=== PATIENT | male | born 1940 | race Caucasian/White ===

== ENCOUNTER → 2016-03-05 | Outpatient (REF) | payer MEDICARE, OTHER ==
[~2016-03-05] MED LIST: /ADVA50050 IN; /ADVA50050 INH; /IPRAINH IN; /THIA10TA OR; /WARF25TA OR; /WARF5TA OR; ACET65TA OR; ADV500INH INH; ALBU17IN INH; ALBU2TAB INH; ALBUTEROL INH; ALEV220T26 PO; AMLO10TA2 PO; AUGM500T34 PO; AZIT600T OR; BACT800T5 PO; BENI20TA11 OR; BENI20TA11 PO; CATA0.2T PO; CEFD1CAP8 PO; COLA100C PO; COMBAER6 INH; DUONSOL IN; ELIQ5TAB PO; FAMO20TA PO; FINA5TAB2 PO; FLAG500T PO; FLEET ENEMA PR; FLOM5CAP PO; FOLI1TAB OR; GABA300C3 PO; HYDR12.55 PO; KEFL500C7 PO; LISI-538 PO; LISI20TA PO; LOPR100T PO; LYRI150C PO; META28.35 PO; METO12TA PO; METO25TAB PO; MILKSUS OR; MIRALEX OR; MVI PO; NORV5TAB OR; PERC5TAB8 OR; PERC7.5T8 OR; PERCOCET PO; PRED10TA PO; PRED20TA OR; SENN8.6T5 OR; SIME180C PO; TRAM50TA2 PO; TYLE325T5 PO
[2016-03-05 13:09] LABS: ALBUMIN 3.8 GM/DL (3.2-5.2); ALBUMIN/GLOBULIN RATIO 1.12 (1.00-1.93); ALKALINE PHOSPHATASE 105 U/L (45-117); ALT/SGPT 60 U/L (12-78); ANION GAP 7 MEQ/L (8-16); AST/SGOT 65 U/L (15-37); BASO % 0.6 % (0.0-1.0); BILIRUBIN,TOTAL 0.6 MG/DL (0.2-1.0); BLOOD UREA NITROGEN 15 MG/DL (7-18); CALCIUM LEVEL 8.8 MG/DL (8.8-10.2); CARBON DIOXIDE LEVEL 31 MEQ/L (21-32); CHLORIDE LEVEL 105 MEQ/L (98-107); CREATININE FOR GFR 1.21 MG/DL (0.70-1.30); EOS # 0.3 K/mm3 (0.0-0.50); EOS % 3.4 % (0.0-3.0); GLOMERULAR FILTRATION RATE > 60.0 (>42); GLUCOSE, FASTING 92 MG/DL (83-110); LARGE UNSTAINED CELL # 0.2 K/mm3 (0.0-0.4); LYMPH # 2.4 K/mm3 (1.5-4.5); MEAN CORPUSCULAR HEMOGLOBIN 29.2 pg (27.0-33.0); MEAN CORPUSCULAR HGB CONC 32.2 g/dl (32.0-36.5); MEAN CORPUSCULAR VOLUME 90.6 fl (80.0-96.0); MONO # 0.6 K/mm3 (0.0-0.8); MONO % 7.3 % (0.0-5.0); NEUTROPHILS # 4.4 K/mm3 (1.8-7.7); NEUTROPHILS % 55.7 % (36.0-66.0); PLATELET COUNT, AUTOMATED 218 k/mm3 (150-450); POTASSIUM SERUM 4.9 MEQ/L (3.5-5.1); RED CELL DISTRIBUTION WIDTH 13.1 % (11.5-14.5); SODIUM LEVEL 143 MEQ/L (136-145); TOTAL PROTEIN 7.2 GM/DL (6.4-8.2); WHITE BLOOD COUNT 7.8 K/mm3 (4.0-10.0)
== END ==
LOC: M LABDRWAD 12:17
PROVIDERS: ATTEND Family Medicine
DX: R73.01 Impaired fasting glucose (principal); I10 Essential (primary) hypertension

== ENCOUNTER → 2016-03-13 | Day surgery (SDC) | payer MEDICARE, OTHER ==
[~2016-03-13] VITALS: Ht 175.3 cm; Wt 81.6 kg
[~2016-03-13] MED LIST changes: +ACETAMINOPHEN 325 MG TAB PO PRN; +ACETYLCHOLINE OPHTH SOLN 1% 2ML As Ordered ONE; +ACETYLCHOLINE OPHTH SOLN 1% 2ML XX ONE; +AcetaZOLAMIDE 500 MG ER CAP PO ONE; +BALANCED SALT IRRIGATION SOL 500ML GLASS BOTTLE (FOR OR EYE COMPOUND) IR ONE; +BSS with VANC/TOB/EPI for EYE CASES IR ONE; +CEFUROXIME 1MG/0.1ML INTRACAMERAL INJ As Ordered ONE; +CEFUROXIME 1MG/0.1ML INTRACAMERAL INJ ICAM ONE; +CYCLOPENTOLATE 2% OPHTH SOLN As Ordered ONE; +CYCLOPENTOLATE 2% OPHTH SOLN OD ONE; +HEALON DUET (HEALON 10MG/ML 0.55ML & HEALON ENDOCOAT 30MG/ML 0.85ML) As Ordered ONE; +HEALON DUET (HEALON 10MG/ML 0.55ML & HEALON ENDOCOAT 30MG/ML 0.85ML) XX ONE; +KETOROLAC 0.5% OPHTH SOLN OD ONE; +LIDOCAINE 1% SDV 5 ML VIAL As Ordered ONE; +LIDOCAINE 1% SDV 5 ML VIAL XX ONE; +LIDOCAINE 4% INJ 5 ML AMP OU ONE; +METOPROLOL 5 MG/5 ML VIAL As Ordered ONE; +MIDAZOLAM INJ 2 MG/2 ML VIAL (J2250) As Ordered ONE; +OFLOXACIN 0.3 % (OCUFLOX) OPTH SOL 5ML As Ordered ONE; +OFLOXACIN 0.3 % (OCUFLOX) OPTH SOL 5ML OD ONE; +PHENYLEPHRINE 2.5% OPHTH SOL 2ML As Ordered ONE; +PHENYLEPHRINE 2.5% OPHTH SOL 2ML OD ONE; +POVIDONE-IODINE 5% OPHTH PREP SOL 30ML As Ordered ONE; +PROPARACAINE 0.5% OPHTH SOL 15ML OD PRN; +TOBRADEX OPHTH SUSP 2.5 ML OD ONE; +TRIMETHOBENZAMIDE 300 MG CAP PO PRN; +TROPICAMIDE 1% OPHTH SOLN 2 ML As Ordered ONE; +TROPICAMIDE 1% OPHTH SOLN 2 ML OD ONE; +fentaNYL 100 MCG/2 ML INJECTION (J3010) As Ordered ONE
[2016-03-13 09:25] VITALS: BP 136/78
--- NOTE | 2016-03-13 11:35 | RO ---
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 PROCEDURE: Femtosecond cataract extraction with posterior chamber intraocular lens implantation and use of pupil expansion device. Lens used PCB00 20.0 diopter. SURGEON: Lyndsay Umaña MD VP DELIVERY: ANESTHESIA: Topical with sedation. DESCRIPTION OF PROCEDURE: The patient was prepped and draped in the usual fashion. A lid speculum was placed between the lids. The eye was fixated. A stab incision was made to the anterior chamber, and 1% nonpreserved Lidocaine was instilled. Then, viscoelastic was instilled. The eye was refixated. A 2.75 mm keratome was used to make a clear corneal temporal limbal incision. The Malyugin ring was placed into bowling alley floors installer and injected into the eye. First the distal scroll engaged the iris then the superior and inferior scrolls engaged iris. The proximal scroll was placed with manipulation hook. Capsulorrhexis was begun with a 30-gauge bent needle and then carried out in a circular fashion with capsulorrhexis forceps. The lens was hydrodissected, and then the nucleus was grooved into two meridians. The nucleus was then cracked into four quadrants. Each quadrant was removed with the phacoemulsification unit. Any remaining cortex was removed with the I and A. Capsular bag was refilled with viscoelastic. A posterior chamber intraocular lens was placed into the capsular bag. The Malyugin ring was disinserted from the iris and the four scrolls and extracted with the manipulation hook. Any remaining viscoelastic was removed with the I and A unit. The wound was hydrated, and Miochol was instilled. The patient tolerated the procedure well and went to recovery room in stable condition.
== END | disposition home or self-care (01) ==
LOC: M SDC 06:47
PROVIDERS: ATTEND Ophthalmology
DX: H25.11 Age-related nuclear cataract, right eye (principal); I10 Essential (primary) hypertension; J44.9 Chronic obstructive pulmonary disease, unspecified; K21.9 Gastro-esophageal reflux disease without esophagitis; Z79.899 Other long term (current) drug therapy; I48.91 Unspecified atrial fibrillation; Z79.02 Long term (current) use of antithrombotics/antiplatelets; Z87.891 Personal history of nicotine dependence
CPT/HCPCS: 66984; J2250; J3010; V2632

== ENCOUNTER → 2016-06-21 | Outpatient (REF) | payer MEDICARE, OTHER ==
[~2016-06-21] MED LIST changes: -ACETAMINOPHEN 325 MG TAB PO PRN; -ACETYLCHOLINE OPHTH SOLN 1% 2ML As Ordered ONE; -ACETYLCHOLINE OPHTH SOLN 1% 2ML XX ONE; -AcetaZOLAMIDE 500 MG ER CAP PO ONE; -BALANCED SALT IRRIGATION SOL 500ML GLASS BOTTLE (FOR OR EYE COMPOUND) IR ONE; -BSS with VANC/TOB/EPI for EYE CASES IR ONE; -CEFUROXIME 1MG/0.1ML INTRACAMERAL INJ As Ordered ONE; -CEFUROXIME 1MG/0.1ML INTRACAMERAL INJ ICAM ONE; -COLA100C PO; +COLA100C3 PO; -CYCLOPENTOLATE 2% OPHTH SOLN As Ordered ONE; -CYCLOPENTOLATE 2% OPHTH SOLN OD ONE; +GABA-282 PO; -GABA300C3 PO; -HEALON DUET (HEALON 10MG/ML 0.55ML & HEALON ENDOCOAT 30MG/ML 0.85ML) As Ordered ONE; -HEALON DUET (HEALON 10MG/ML 0.55ML & HEALON ENDOCOAT 30MG/ML 0.85ML) XX ONE; -KETOROLAC 0.5% OPHTH SOLN OD ONE; -LIDOCAINE 1% SDV 5 ML VIAL As Ordered ONE; -LIDOCAINE 1% SDV 5 ML VIAL XX ONE; -LIDOCAINE 4% INJ 5 ML AMP OU ONE; -METOPROLOL 5 MG/5 ML VIAL As Ordered ONE; -MIDAZOLAM INJ 2 MG/2 ML VIAL (J2250) As Ordered ONE; -OFLOXACIN 0.3 % (OCUFLOX) OPTH SOL 5ML As Ordered ONE; -OFLOXACIN 0.3 % (OCUFLOX) OPTH SOL 5ML OD ONE; -PHENYLEPHRINE 2.5% OPHTH SOL 2ML As Ordered ONE; -PHENYLEPHRINE 2.5% OPHTH SOL 2ML OD ONE; -POVIDONE-IODINE 5% OPHTH PREP SOL 30ML As Ordered ONE; -PROPARACAINE 0.5% OPHTH SOL 15ML OD PRN; -TOBRADEX OPHTH SUSP 2.5 ML OD ONE; -TRIMETHOBENZAMIDE 300 MG CAP PO PRN; -TROPICAMIDE 1% OPHTH SOLN 2 ML As Ordered ONE; -TROPICAMIDE 1% OPHTH SOLN 2 ML OD ONE; -fentaNYL 100 MCG/2 ML INJECTION (J3010) As Ordered ONE
[2016-06-21 12:27] LABS: BASO # 0.1 K/mm3 (0.0-0.2); BASO % 0.7 % (0.0-1.0); EOS # 0.2 K/mm3 (0.0-0.50); EOS % 2.5 % (0.0-3.0); LARGE UNSTAINED CELL # 0.1 K/mm3 (0.0-0.4); LARGE UNSTAINED CELL % 1.6 % (0.0-4.0); LYMPH # 2.3 K/mm3 (1.5-4.5); LYMPH % 26.5 % (24.0-44.0); MEAN CORPUSCULAR HEMOGLOBIN 30.4 pg (27.0-33.0); MEAN CORPUSCULAR HGB CONC 32.7 g/dl (32.0-36.5); MEAN CORPUSCULAR VOLUME 93.1 fl (80.0-96.0); MONO # 0.7 K/mm3 (0.0-0.8); MONO % 8.5 % (0.0-5.0); NEUTROPHILS # 4.9 K/mm3 (1.8-7.7); NEUTROPHILS % 60.2 % (36.0-66.0); PLATELET COUNT, AUTOMATED 229 k/mm3 (150-450); RED CELL DISTRIBUTION WIDTH 13.1 % (11.5-14.5); WHITE BLOOD COUNT 8.1 K/mm3 (4.0-10.0)
[2016-06-21 12:49] LABS: ALBUMIN 3.4 GM/DL (3.2-5.2); ALBUMIN/GLOBULIN RATIO 0.92 (1.00-1.93); CALCIUM LEVEL 8.4 MG/DL (8.8-10.2); CREATININE FOR GFR 1.35 MG/DL (0.70-1.30); FREE T4 1.24 NG/DL (0.76-1.46); GLOMERULAR FILTRATION RATE 54.7 (>42); POTASSIUM SERUM 4.3 MEQ/L (3.5-5.1); TOTAL PROTEIN 7.1 GM/DL (6.4-8.2)
== END ==
LOC: M LABDRWAD 12:10
PROVIDERS: ATTEND Physician Assistant
DX: I48.0 Paroxysmal atrial fibrillation (principal); R73.01 Impaired fasting glucose; I10 Essential (primary) hypertension

== ENCOUNTER → 2016-10-16 | Outpatient (REF) | payer MEDICARE, OTHER ==
[~2016-10-16] MED LIST changes: -COLA100C3 PO; +COLA100C5 PO; +KEFL500C17 PO; -KEFL500C7 PO; -METO12TA PO; +METO1TAB87 PO
[2016-10-16 16:15] LABS: BASO % 0.6 % (0.0-1.0); EOS # 0.3 K/mm3 (0.0-0.50); EOS % 3.6 % (0.0-3.0); LARGE UNSTAINED CELL # 0.2 K/mm3 (0.0-0.4); LARGE UNSTAINED CELL % 2.2 % (0.0-4.0); LYMPH # 2.5 K/mm3 (1.5-4.5); LYMPH % 26.7 % (24.0-44.0); MEAN CORPUSCULAR HEMOGLOBIN 30.1 pg (27.0-33.0); MEAN CORPUSCULAR HGB CONC 32.1 g/dl (32.0-36.5); MEAN CORPUSCULAR VOLUME 93.7 fl (80.0-96.0); MONO # 0.7 K/mm3 (0.0-0.8); MONO % 8.1 % (0.0-5.0); NEUTROPHILS % 58.9 % (36.0-66.0); PLATELET COUNT, AUTOMATED 203 k/mm3 (150-450); RED CELL DISTRIBUTION WIDTH 13.4 % (11.5-14.5); WHITE BLOOD COUNT 8.5 K/mm3 (4.0-10.0)
[2016-10-16 16:18] LABS: ALBUMIN 3.4 GM/DL (3.2-5.2); BILIRUBIN,TOTAL 0.6 MG/DL (0.2-1.0); CALCIUM LEVEL 8.4 MG/DL (8.8-10.2); CREATININE FOR GFR 1.33 MG/DL (0.70-1.30); GLOMERULAR FILTRATION RATE 55.5 (>42); POTASSIUM SERUM 3.7 MEQ/L (3.5-5.1); TOTAL PROTEIN 6.8 GM/DL (6.4-8.2)
== END ==
LOC: M LAB REF 15:38
PROVIDERS: ATTEND Family Medicine
DX: I10 Essential (primary) hypertension (principal); R73.01 Impaired fasting glucose

== ENCOUNTER → 2017-01-31 | Outpatient (REF) | payer OTHER, MEDICARE ==
[2017-01-31 12:57] LABS: CALCIUM LEVEL 8.7 MG/DL (8.8-10.2); CREATININE FOR GFR 1.32 MG/DL (0.70-1.30); POTASSIUM SERUM 3.7 MEQ/L (3.5-5.1)
== END ==
LOC: M LABDRWAD 12:16
PROVIDERS: ATTEND Physician Assistant
DX: Z00.00 Encounter for general adult medical examination without abnormal findings (principal); R73.01 Impaired fasting glucose

== ENCOUNTER → 2017-06-30 | Outpatient (REF) | payer MEDICARE, OTHER ==
[2017-06-30 13:27] LABS: ALBUMIN 3.5 GM/DL (3.2-5.2); ALBUMIN/GLOBULIN RATIO 0.97 (1.00-1.93); ALKALINE PHOSPHATASE 92 U/L (45-117); ALT/SGPT 21 U/L (12-78); ANION GAP 8 MEQ/L (8-16); AST/SGOT 21 U/L (7-37); BILIRUBIN,TOTAL 1.1 MG/DL (0.2-1.0); BLOOD UREA NITROGEN 21 MG/DL (7-18); CALCIUM LEVEL 8.4 MG/DL (8.8-10.2); CARBON DIOXIDE LEVEL 31 MEQ/L (21-32); CHLORIDE LEVEL 102 MEQ/L (98-107); CHOLESTEROL LEVEL 123 MG/DL (<200); CHOLESTEROL RISK RATIO 2.733 (<5); CREATININE FOR GFR 1.31 MG/DL (0.70-1.30); FREE T4 1.18 NG/DL (0.76-1.46); GLOMERULAR FILTRATION RATE 56.5 (>42); GLUCOSE, FASTING 77 MG/DL (70-100); HDL CHOLESTEROL 45 MG/DL (>40); LDL CHOLESTEROL 64.8 MG/DL (<100); NON-HDL-C 78 MG/DL; POTASSIUM SERUM 3.6 MEQ/L (3.5-5.1); SODIUM LEVEL 141 MEQ/L (136-145); TOTAL PROTEIN 7.1 GM/DL (6.4-8.2); TRIGLYCERIDES LEVEL 66 MG/DL (<150)
[2017-06-30 14:03] LABS: ESTIMATED AVERAGE GLUCOSE 111 MG/DL (60-110); HEMOGLOBIN A1c 5.5 %
== END ==
LOC: M LAB REF 12:26
DX: R73.03 Prediabetes (principal); I12.9 Hypertensive chronic kidney disease with stage 1 through stage 4 chronic kidney disease, or unspecified chronic kidney disease
CPT/HCPCS: 84443

== ENCOUNTER → 2017-11-06 | Outpatient (REF) | payer MEDICARE, OTHER ==
[2017-11-06 21:13] LABS: ANION GAP 9 MEQ/L (8-16); BLOOD UREA NITROGEN 19 MG/DL (7-18); CALCIUM LEVEL 8.6 MG/DL (8.8-10.2); CARBON DIOXIDE LEVEL 32 MEQ/L (21-32); CHLORIDE LEVEL 98 MEQ/L (98-107); CREATININE FOR GFR 1.31 MG/DL (0.70-1.30); GLOMERULAR FILTRATION RATE 56.3 (>42); GLUCOSE, FASTING 88 MG/DL (70-100); POTASSIUM SERUM 3.7 MEQ/L (3.5-5.1); SODIUM LEVEL 139 MEQ/L (136-145)
== END ==
LOC: M LAB REF 20:18
DX: R60.9 Edema, unspecified (principal)
CPT/HCPCS: 80048

== ENCOUNTER 2018-06-06 03:30 | Emergency (ER) | payer MEDICARE, OTHER ==
[~2018-06-06] VITALS: Ht 175.3 cm; Wt 86.4 kg
[~2018-06-06 03:30] MED LIST changes: -/ADVA50050 IN; -/ADVA50050 INH; -/IPRAINH IN; -/WARF25TA OR; -/WARF5TA OR; +ADVA1AER2 IN; +ADVA1AER2 INH; -AMLO10TA2 PO; +AMLO10TA5 PO; +ATRO0.063 IN; +COUM1TAB17 OR; +COUM1TAB18 OR; +FLOM0.4C39 PO; -FLOM5CAP PO; -GABA-282 PO; +GABA-843 PO; +METO-346 PO; -METO25TAB PO; +PRED-351 PO; -PRED10TA PO
[2018-06-06 03:31] VITALS: BP 167/96
[2018-06-06] MEDS ORDERED: METO50TA7 (03:48)
[2018-06-06] MEDS ORDERED: GABA-843 (03:48)
[2018-06-06] MEDS ORDERED: AMLO5TAB6 PO (03:48)
[2018-06-06] MEDS ORDERED: HYDR-3713 (03:48)
== END 2018-06-06 03:52 | disposition left against medical advice (07) ==
LOC: M ED 03:30
DX: R33.9 Retention of urine, unspecified (principal); Z53.21 Procedure and treatment not carried out due to patient leaving prior to being seen by health care provider

== ENCOUNTER → 2018-06-10 | Outpatient (REF) | payer MEDICARE, OTHER ==
[~2018-06-10] MED LIST changes: +AMLO5TAB6 PO; +GABA-843; +HYDR-3713; +METO50TA7
== END ==
LOC: M LAB REF 18:16
PROVIDERS: ATTEND Physician Assistant
DX: N39.0 Urinary tract infection, site not specified (principal)

== ENCOUNTER → 2018-06-11 | Outpatient (REF) | payer MEDICARE, OTHER ==
[2018-06-11 11:00] LABS: BASO # 0.1 10^3/uL (0.0-0.2); BASO % 0.7 % (0.0-1.0); EOS # 0.3 10^3/uL (0.0-0.50); EOS % 3.3 % (0.0-3.0); HEMATOCRIT 43.4 % (42.0-52.0); HEMOGLOBIN 14.1 g/dl (13.5-17.5); LYMPH # 2.1 10^3/uL (1.5-4.5); LYMPH % 28.1 % (24.0-44.0); MEAN CORPUSCULAR HEMOGLOBIN 30.5 pg (27.0-33.0); MEAN CORPUSCULAR HGB CONC 32.5 g/dl (32.0-36.5); MEAN CORPUSCULAR VOLUME 93.7 fl (80.0-96.0); MONO # 0.8 10^3/uL (0.0-0.8); MONO % 10.6 % (0.0-5.0); NEUTROPHILS # 4.3 10^3/uL (1.8-7.7); NEUTROPHILS % 56.9 % (36.0-66.0); PLATELET COUNT, AUTOMATED 201 10^3/uL (150-450); RED BLOOD COUNT 4.63 10^6/uL (4.30-6.10); WHITE BLOOD COUNT 7.5 10^3/uL (4.0-10.0)
[2018-06-11 11:36] LABS: ALBUMIN 3.9 GM/DL (3.2-5.2); ALT/SGPT 22 U/L (12-78); BILIRUBIN,TOTAL 0.8 MG/DL (0.2-1.0); BLOOD UREA NITROGEN 14 MG/DL (7-18); CARBON DIOXIDE LEVEL 33 MEQ/L (21-32); CHLORIDE LEVEL 98 MEQ/L (98-107); CREATININE FOR GFR 1.15 MG/DL (0.70-1.30); GLOMERULAR FILTRATION RATE > 60.0 (>42); GLUCOSE, FASTING 101 MG/DL (70-100); MAGNESIUM LEVEL 2.3 MG/DL (1.8-2.4); POTASSIUM SERUM 3.5 MEQ/L (3.5-5.1); SODIUM LEVEL 137 MEQ/L (136-145); TOTAL PROTEIN 7.5 GM/DL (6.4-8.2)
== END ==
LOC: M LABDRWAD 10:27
PROVIDERS: ATTEND Physician Assistant
DX: N39.0 Urinary tract infection, site not specified (principal)

== ENCOUNTER 2018-06-16 07:27 | Inpatient (IN) | payer MEDICARE, OTHER ==
[~2018-06-16] VITALS: Ht 175.3 cm; Wt 81.9 kg
[~2018-06-16 07:27] MED LIST changes: -GABA-843
[2018-06-16] MEDS ORDERED: TAMS1CAP17 PO (07:43)
[2018-06-16] MEDS ORDERED: SPIR-10 PO (07:43)
[2018-06-16] MEDS ORDERED: CEPH500C PO (07:43)
[2018-06-16 09:17] LABS: BASO # 0.1 10^3/uL (0.0-0.2); BASO % 0.7 % (0.0-1.0); EOS # 0.2 10^3/uL (0.0-0.50); HEMATOCRIT 48.6 % (42.0-52.0); HEMOGLOBIN 15.4 g/dl (13.5-17.5); LYMPH # 2.1 10^3/uL (1.5-4.5); LYMPH % 17.7 % (24.0-44.0); MEAN CORPUSCULAR HEMOGLOBIN 30.2 pg (27.0-33.0); MEAN CORPUSCULAR HGB CONC 31.7 g/dl (32.0-36.5); MEAN CORPUSCULAR VOLUME 95.3 fl (80.0-96.0); MONO # 1.1 10^3/uL (0.0-0.8); MONO % 9.1 % (0.0-5.0); NEUTROPHILS # 8.4 10^3/uL (1.8-7.7); PLATELET COUNT, AUTOMATED 233 10^3/uL (150-450)
[2018-06-16 09:44] LABS: CREATININE FOR GFR 1.44 MG/DL (0.70-1.30); GLOMERULAR FILTRATION RATE 50.5 (>42)
[2018-06-16 09:45] LABS: BILIRUBIN,TOTAL 1.4 MG/DL (0.2-1.0); CALCIUM LEVEL 9.1 MG/DL (8.8-10.2); POTASSIUM SERUM 3.4 MEQ/L (3.5-5.1); TOTAL PROTEIN 8.4 GM/DL (6.4-8.2)
[2018-06-16 09:46] LABS: ALBUMIN 4.2 GM/DL (3.2-5.2)
--- NOTE | 2018-06-16 09:51 | REP ---
CT ABDOMEN AND PELVIS WITHOUT CONTRAST: CT abdomen and pelvis was performed without oral or IV contrast. Sagittal and coronal reconstruction images are performed. Visualized lung bases demonstrate no evidence of acute infiltrate. The liver, spleen, adrenals, pancreas and kidneys are grossly unremarkable. There is no renal, ureteral, or bladder calculus. There is no hydroureteronephrosis. The patient has had a prior cholecystectomy. There is no evidence of biliary dilatation. There is mild to moderate atherosclerotic calcification of the abdominal aorta without aneurysm. There is no adenopathy, free air, or free fluid. No bowel wall thickening is seen. Scattered diverticula are seen at the colon. There is no evidence of appendicitis. There is a small umbilical hernia containing fat. I see no pelvic mass. There is mild diffuse thickening or the urinary bladder. There is a small left posterolateral bladder diverticulum. A metallic hip prosthesis is noted on the right. There is streak artifact which somewhat limits evaluation of surrounding structures. IMPRESSION: No renal, ureteral or bladder calculus. No hydroureteronephrosis. Mild diffuse bladder wall thickening with a small diverticulum of the left side of the bladder posterolaterally. Scattered diverticula of the colon without evidence of acute diverticulitis. No evidence of appendicitis. Small umbilical hernia contains fat. Electronically Signed by Angel Mcdermott MD 06/17/2018 11:37 A
[2018-06-16] MEDS ORDERED: BACTRIM 160MG/800MG DS TAB PO ONE (10:00)
[2018-06-16] MEDS ORDERED: LIDOCAINE 2% 5ML JELLY UROJET TOP ONE (10:00)
[2018-06-16] MEDS ORDERED: VENTAER INH (11:20)
[2018-06-16] MEDS ORDERED: METO50TA7 PO (11:24)
[2018-06-16] MEDS ORDERED: NORC1TAB7 PO (11:25)
[2018-06-16] MEDS ORDERED: ONDANSETRON 4MG/2ML VIAL (J2405) As Ordered ONE (13:07)
[2018-06-16] MEDS ORDERED: MORPHINE 4 MG/ML 1ML VIAL/SYRINGE (J2270) As Ordered ONE (13:08)
[2018-06-16] MEDS ORDERED: ONDANSETRON 4MG/2ML VIAL (J2405) IV ONE (13:15)
[2018-06-16] MEDS ORDERED: MORPHINE 4 MG/ML 1ML VIAL/SYRINGE (J2270) IV ONE (13:15)
[2018-06-16] MEDS ORDERED: BUPIVACAINE HCL 0.25% 10 ML VIAL SC ONE (13:15)
[2018-06-16] MEDS ORDERED: ACETAMINOPHEN TAB 650MG DOSE (2X325MG) PO PRN (15:30)
[2018-06-16] MEDS ORDERED: ALBUTEROL 90 MCG/ACT 8GM HFA INHALER INH PRN (15:30)
[2018-06-16] MEDS ORDERED: MOM 30ML SUSPENSION UDC PO PRN (15:30)
[2018-06-16] MEDS ORDERED: SIMETHICONE 80 MG CHEW TAB PO PRN (15:30)
[2018-06-16] MEDS: cefTRIAXone SOD 1 GM in D5W MINI-BAG PLUS 50 ML IV SCH (15:52)
[2018-06-16] MEDS ORDERED: POTASSIUM CHLORIDE 10 MEQ SR TABLET PO ONE (16:00)
--- NOTE | 2018-06-16 16:06 | HPEPDOC ---
General Date of Admission Jun 16, 2018 at 15:26 Chief Complaint The patient is a 77-year-old male admitted with a reason for visit of Phimosis. History of Present Illness 77-year-old male with past medical history of hypertension, osteoporosis, COPD, atrial fibrillation on eliquis, and BPH status post TURP presented to the ER with a chief complaint of difficulty with urination. The patient states that he has had difficulty with urination over the last several months due to increasing obstruction from foreskin overlying the penis. He states that over the last several weeks he was able to be after a few seconds of initiation of urine. The foreskin became irritated and swollen last week, and the patient states that he was prescribed antibiotic therapy by his PCP. However, yesterday, the patient states that he was not able to urinate and was only dribbling small amounts. He also noted that he was getting fullness in his lower abdominal area. He denied any complaints of fevers, chills, chest pain, palpitations, abdominal pain, or any nausea/vomiting/diarrhea. In the ER, there was apparently 600 mL of urine noted in the bladder. Urology was consulted and was able to make a small opening through the foreskin and the patient was able to urinate. Unfortunately, a Potts catheter could not be passed through. At this time, the patient will be admitted to the hospitalist service, and a consultation has been placed to urology for further surgical intervention in the morning. Home Medications Scheduled Apixaban (Eliquis) 5 Mg Tab, 5 MG PO BID, (Reported) Cephalexin (Cephalexin) 500 Mg Capsule, 500 MG PO BID, (Reported) FILLED 06/10 X 7 DAYS Finasteride (Finasteride) 5 Mg Tab, 5 MG PO QHS, (Reported) Gabapentin (Gabapentin) 300 Mg Capsule, 300 MG PO BID, (Reported) Metoprolol Tartrate (Metoprolol Tartrate) 50 Mg Tablet, 25 MG PO BID, (Reported) Salmeterol/Fluticasone (Advair 500-50 Diskus) 28 Puff/Inhaler Aerp, 1 PUFF INH BID, (Reported) Spironolactone (Spironolactone) 25 Mg Tablet, 25 MG PO DAILY, (Reported) Tamsulosin Hcl (Tamsulosin HCl) 0.4 Mg Capsule, 0.4 MG PO QHS, (Reported) Scheduled PRN Albuterol Sulfate (Ventolin Hfa) 18 Gm Hfa.aer.ad, 2 PUFF INH Q4H PRN for SHORTNESS OF BREATH, (Reported) Hydrocodone/Acetaminophen ([place] 5-325 Tablet) 1 Each Tablet, 1 TAB PO Q6H PRN for PAIN, (Reported) Allergies Coded Allergies: ciprofloxacin (Verified Allergy, Intermediate, red line from IV, 06/16/18) Penicillins (Verified Allergy, Mild, RASH, 06/16/18) Quinolones (Verified Allergy, Mild, RASH/RED STREAK UP ARM FROM CIPRO, 06/16/18) pregabalin (Verified Allergy, Mild, SWELLING, 06/16/18) Past Medical History Medical History As noted in HPI. Surgical History Right hip replacement, cataract surgery, status post TURP Review of Systems Other systems 10 point review of systems negative unless otherwise specified in HPI. Physical Examination General Exam: Positive: Alert, Cooperative, No Acute Distress ENT Exam: Positive: Atraumatic, Mucous membr. moist/pink Neck Exam: Negative: JVD Chest Exam: Positive: Clear to auscultation, Normal air movement Heart Exam: Positive: Rate Normal, Normal S1, Normal S2 Abdomen Exam: Positive: Soft; Negative: Tenderness Extremity Exam: Negative: Tenderness, Swelling Skin Exam: Positive: Other skin issue (foreskin over penis noted to be slightly edematous. No tenderness to palpation. There is a small opening to the urethra noted with some superficial blood at the meatus.) Psych Exam: Positive: Oriented x 3 Vital Signs Vital Signs Date Time Temp Pulse Resp B/P (MAP) Pulse Ox O2 Delivery O2 Flow Rate FiO2 06/16/18 13:27 22 06/16/18 12:12 97.6 72 134/81 (98) 99 Room Air Laboratory Data Labs 24H Laboratory Tests 2 06/16/18 08:33: Urine Color YELLOW, Urine Appearance CLEAR, Urine pH 6.0, Urine Specific [place] 1.010, Urine Protein NEGATIVE, Urine Glucose (UA) NEGATIVE, Urine Ketones NEGATIVE, Urine Blood 2+H, Urine Nitrite NEGATIVE, Urine Bilirubin NEGATIVE, Urine Urobilinogen 2.0H, Urine Leukocyte Esterase 2+H, Urine WBC (Auto) 30H, Urine RBC (Auto) 53H, Urine Hyaline Casts (Auto) 0, Urine Bacteria (Auto) 1+H, Urine Squamous Epithelial Cells 7, Urine Sperm (Auto) 06/16/18 08:39: Immature Granulocyte % (Auto) 0.5, White Blood Count 12.0H, Red Blood Count 5.10, Hemoglobin 15.4, Hematocrit 48.6, Mean Corpuscular Volume 95.3, Mean Corpuscular Hemoglobin 30.2, Mean Corpuscular Hemoglobin Concent 31.7L, Red Cell Distribution Width 13.4, Platelet Count 233, Neutrophils (%) (Auto) 70.0H, Lym phocytes (%) (Auto) 17.7L, Monocytes (%) (Auto) 9.1H, Eosinophils (%) (Auto) 2.0, Basophils (%) (Auto) 0.7, Neutrophils # (Auto) 8.4H, Lymphocytes # (Auto) 2.1, Monocytes # (Auto) 1.1H, Eosinophils # (Auto) 0.2, Basophils # (Auto) 0.1, Nucleated Red Blood Cells % (auto) 0.0, Anion Gap 6L, Glomerular Filtration Rate 50.5, Blood Urea Nitrogen 23H, Creatinine 1.44H, Sodium Level 138, Potassium Level 3.4L, Chloride Level 101, Carbon Dioxide Level 31, Calcium Level 9.1, Aspartate Amino Transf (AST/SGOT) 30, Alanine Aminotransferase (ALT/SGPT) 34, Alkaline Phosphatase 90, Total Bilirubin 1.4H, Total Protein 8.4H, Albumin 4.2, Albumin/Globulin Ratio 1.00 CBC/BMP Laboratory Tests 06/16/18 08:39 Red Blood Count 5.10, Mean Corpuscular Volume 95.3, Mean Corpuscular Hemoglobin 30.2, Mean Corpuscular Hemoglobin Concent 31.7 L, Red Cell Distribution Width 13.4, Neutrophils (%) (Auto) 70.0 H, Lymphocytes (%) (Auto) 17.7 L, Monocytes (%) (Auto) 9.1 H, Eosinophils (%) (Auto) 2.0, Basophils (%) (Auto) 0.7, Neutrophils # (Auto) 8.4 H, Lymphocytes # (Auto) 2.1, Monocytes # (Auto) 1.1 H, Eosinophils # (Auto) 0.2, Basophils # (Auto) 0.1, Calcium Level 9.1, Aspartate Amino Transf (AST/SGOT) 30, Alanine Aminotransferase (ALT/SGPT) 34, Alkaline Phosphatase 90, Total Bilirubin 1.4 H, Total Protein 8.4 H, Albumin 4.2 Microbiology Microbiology 06/16/18 Urine Culture, Received Pending Plan / VTE VTE Prophylaxis Ordered?: Yes Plan Plan Urinary Obstruction 2/2 Phimosis Urology saw the patient in the ER and was able to make a small opening in the foreskin to allow urine to drain The patient is tentatively scheduled to undergo surgical intervention by urology in the a.m. CT abdomen/pelvis with no acute findings We will keep the patient nothing by mouth after midnight As far as the patient's medical optimization is concerned, the patient states that he is relatively active at baseline. He notes that he is able to walk up 2 flights of stairs with a bag of groceries, and does not have any active complaints of chest pain, shortness of breath, or palpitations. He denies a history of ischemic coronary artery disease. The patient is a Class 1 Risk on the revised cardiac risk index, and is medically optimized with no indications for further invasive work up. Urology on board Atrial Fibrillation on Eliquis Last dose of eliquis was taken on 06/15/18 @ 8pm-- we will hold this for surgical intervention. Risks, benefits, and alternative options were discussed at length regarding withholding anticoagulation therapy at this time. The patient and his who is at the bedside verbalized understanding of the same and agreed with the plan moving forward. Rate controlled, Cont Metoprolol CKD Stage III Serum Cr at baseline COPD, stable Continue albuterol, Advair History of BPH s/p TURP Continue finasteride, tamsulosin Hypertension, stable Continue medications as ordered DVT prophylaxis SHARANs/HARVEY Owens MD Jun 16, 2018 16:06
--- NOTE | 2018-06-16 16:12 | REP ---
Chest one-view HISTORY: Preop Comparison: 10/12/2015 The lungs are clear. The heart is normal in size. The pulmonary vasculature is normal in appearance. Impression: No acute disease. Electronically Signed by Jerel Lemus MD 06/16/2018 04:03 P
[2018-06-16 16:40] VITALS: BP 121/64
--- NOTE | 2018-06-16 16:59 | SMCUROLCON ---
Urology Consultation General Date of Consultation 06/16/18 Reason For Consultation This patient is seen for Urinary Problem. History of Present Illness This is a 77 y/o M w/ a PMH significant for A fib (on eliquis), urethral stricture (s/p urethral dilation in 2014), COPD, and HTN, who presented to the ER today w/o urinary retention. The patient notes that his foreskin has become more and more tight recently, making it harder and harder for him to void. Since this morning he has not been able to void at all. Several attempts were made at catheter placement in the ED w/o success due to inability to advance the catheter past the phimotic ring. The patient notes moderate suprapubic and penile discomfort. He denies dysuria. He denies fevers or chills. Past Medical History Medical History see HPI Surgical Hstory right hip replacement left knee scope Medications Current Medications Current Medications Home Med (Med Rec Complete!) ASDIRECTED XX ; Start 06/16/18 at 11:30; Stop 05/20 at 11:39; Status DC Lidocaine HCl (Lidocaine 4% Inj) 10 ml PREOP INH ; Start 06/17/18 at 06:00; Stop 06/17/18 at 06:00; Status DC Allergies Allergies: Coded Allergies: ciprofloxacin (Verified Allergy, Intermediate, red line from IV, 06/16/18) Penicillins (Verified Allergy, Mild, RASH, 06/16/18) Quinolones (Verified Allergy, Mild, RASH/RED STREAK UP ARM FROM CIPRO, 06/16/18) pregabalin (Verified Allergy, Mild, SWELLING, 06/16/18) Review of Systems Constitutional: Denies: Fever, Chills, Sweats, Weakness, Malaise Skin: Denies: Rash, Lesions, Breakdown, Nail Changes Pulmonary: Denies: Dyspnea, Cough Cardiovascular: Denies Chest Pain, Denies Palpitations Gastrointestinal: Reports: Abdominal Pain (suprapubic discomfort); Denies: Nausea, Vomiting Genitourinary: Reports: Retention, Other Symptoms (tightening of foreskin) Psych: Reports: Mood Normal Physical Examination General Exam: Alert, Cooperative Chest Exam: Normal air movement Heart Exam: Rate Normal Male Exam very tight phimotic ring making retraction of the foreskin very difficult Skin Exam: Nl turgor and temperature Neuro Exam: Normal Speech Psych Exam: Mental status NL, Mood NL Vital Signs/I&O Vital Signs Date Time Temp Pulse Resp B/P (MAP) Pulse Ox O2 Delivery O2 Flow Rate FiO2 06/16/18 13:27 22 06/16/18 12:12 97.6 72 134/81 (98) 99 Room Air Laboratory Data 24H Labs Laboratory Tests 2 06/16/18 08:33: Urine Color YELLOW, Urine Appearance CLEAR, Urine pH 6.0, Urine Specific [place] 1.010, Urine Protein NEGATIVE, Urine Glucose (UA) NEGATIVE, Urine Ketones NEGATIVE, Urine Blood 2+H, Urine Nitrite NEGATIVE, Urine Bilirubin NEGATIVE, Urine Urobilinogen 2.0H, Urine Leukocyte Esterase 2+H, Urine WBC (Auto) 30H, Urine RBC (Auto) 53H, Urine Hyaline Casts (Auto) 0, Urine Bacteria (Auto) 1+H, Urine Squamous Epithelial Cells 7, Urine Sperm (Auto) 06/16/18 08:39: Immature Granulocyte % (Auto) 0.5, White Blood Count 12.0H, Red Blood Count 5.10, Hemoglobin 15.4, Hematocrit 48.6, Mean Corpuscular Volume 95.3, Mean Corpuscular Hemoglobin 30.2, Mean Corpuscular Hemoglobin Concent 31.7L, Red Cell Distribution Width 13.4, Platelet Count 233, Neutrophils (%) (Auto) 70.0H, Lymphocytes (%) (Auto) 17.7L, Monocytes (%) (Auto) 9.1H, Eosinophils (%) (Auto) 2.0, Basophils (%) (Auto) 0.7, Neutrophils # (Auto) 8.4H, Lymphocytes # (Auto) 2.1, Monocytes # (Auto) 1.1H, Eosinophils # (Auto) 0.2, Basophils # (Auto) 0.1, Nucleated Red Blood Cells % (auto) 0.0, Anion Gap 6L, Glomerular Filtration Rate 50.5, Blood Urea Nitrogen 23H, Creatinine 1.44H, Sodium Level 138, Potassium Level 3.4L, Chloride Level 101, Carbon Dioxide Level 31, Calcium Level 9.1, Aspartate Amino Transf (AST/SGOT) 30, Alanine Aminotransferase (ALT/SGPT) 34, Alkaline Phosphatase 90, Total Bilirubin 1.4H, Total Protein 8.4H, Albumin 4.2, Albumin/Globulin Ratio 1.00 CBC/BMP Laboratory Tests 06/16/18 08:39 Red Blood Count 5.10, Mean Corpuscular Volume 95.3, Mean Corpuscular Hemoglobin 30.2, Mean Corpuscular Hemoglobin Concent 31.7 L, Red Cell Distribution Width 13.4, Neutrophils (%) (Auto) 70.0 H, Lymphocytes (%) (Auto) 17.7 L, Monocytes (%) (Auto) 9.1 H, Eosinophils (%) (Auto) 2.0, Basophils (%) (Auto) 0.7, Neutrophils # (Auto) 8.4 H, Lymphocytes # (Auto) 2.1, Monocytes # (Auto) 1.1 H, Eosinophils # (Auto) 0.2, Basophils # (Auto) 0.1, Calcium Level 9.1, Aspartate Amino Transf (AST/SGOT) 30, Alanine Aminotransferase (ALT/SGPT) 34, Alkaline Phosphatase 90, Total Bilirubin 1.4 H, Total Protein 8.4 H, Albumin 4.2 Microbiology Microbiology 06/16/18 Urine Culture, Received Pending Assessment This is a 77 y/o M presenting w/ phimosis and urinary retention. After administering a penile block, I was able to dilate the phimotic ring using hemostats. I then attempted to place a 16Fr Potts catheter several times w/o success. 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 I fortunately was able to dilate it enough for him to be able to void. I explained to the patient that this will be a recurrent problem and I therefore recommended that we set him up for a circumcision and possible meatal dilation in the OR. He is in agreement w/ this. I recommended that he be admitted for medical optimization on the hospitalist service w/ the plan to take him to the OR tomorrow. Plan - appreciate hospitalist service for admission and prep for surgery - continue to hold eliquis (last dose was yesterday evening) - NPO at midnight - plan OR tomorrow for circumcision, possible cystoscopy with urethral dilation LENCHO MEDRANO MD Jun 16, 2018 16:59
[2018-06-16 20:00] VITALS: BP 116/68
[2018-06-16] MEDS: TAMSULOSIN 0.4 MG CAP PO SCH (20:42)
[2018-06-16] MEDS: GABAPENTIN 300 MG CAP PO SCH (20:42)
[2018-06-16] MEDS: METOPROLOL TART 25 MG TABLET PO SCH (20:43)
[2018-06-16] MEDS: FINASTERIDE 5 MG TAB PO SCH (20:43)
[2018-06-16] MEDS: ADVAIR HFA 230/21MCG INHALER INH SCH (20:59)
[2018-06-17] VITALS (7 sets, daily range): BP systolic 108–145; BP diastolic 62–77
--- NOTE | 2018-06-17 05:52 | ECGEPIP ---
Stationary ECG Study [facility] - ED Test Date: 2018-06-16 Pat Name: SAI RUSH Department: Room: - Gender: M Hebrew Cantor: : 1940 Requested By: Veena Mojica PA-C ER Order Number: [id number] Reading MD: Michele Quezada Measurements Intervals [place] Rate: 92 P: AR: 0 QRS: 51 QRSD: 102 T: 73 QT: 368 QTc: 455 Interpretive Statements ATRIAL FIBRILLATION LOW QRS VOLTAGE IN EXTREMITY LEADS SIMILAR TO 10/11/15 Electronically Signed On 06-17-2018 5:51:40 EDT by Michele Quezada
[2018-06-17] MEDS ORDERED: LIDOCAINE 4% INJ 5 ML AMP INH SCH (06:00)
--- NOTE | 2018-06-17 07:48 | IPNPDOC ---
Subjective Review oF Systems Chief Complaint The patient is a 77-year-old male admitted with a reason for visit of Phimosis. Events since Last Encounter No acute events o/n. Patient has been able to void w/o difficulty. Denies pa in. Objective Physical Examination General Exam: Alert, Cooperative Chest Exam: Normal air movement Heart Exam: Positive: Rate Normal, Normal S1, Normal S2 Skin Exam: Nl turgor and temperature Neuro Exam: Normal Speech Psych Exam: Mental status NL, Mood NL Vital Signs/I&O Vital Signs Date Time Temp Pulse Resp B/P (MAP) Pulse Ox O2 Delivery O2 Flow Rate FiO2 06/17/18 04:00 97.7 80 18 108/62 (77) 98 06/16/18 16:17 Room Air I&O- Last 24 Hours up to 6 AM 06/17/18 05:59 Intake Total 230 ml Output Total 1050 ml Balance -820 ml Laboratory Data Labs 24H Laboratory Tests 2 06/16/18 08:33: Urine Color YELLOW, Urine Appearance CLEAR, Urine pH 6.0, Urine Specific [place] 1.010, Urine Protein NEGATIVE, Urine Glucose (UA) NEGATIVE, Urine Ketones NEGATIVE, Urine Blood 2+H, Urine Nitrite NEGATIVE, Urine Bilirubin NEGATIVE, Urine Urobilinogen 2.0H, Urine Leukocyte Esterase 2+H, Urine WBC (Auto) 30H, Urine RBC (Auto) 53H, Urine Hyaline Casts (Auto) 0, Urine Bacteria (Auto) 1+H, Urine Squamous Epithelial Cells 7, Urine Sperm (Auto) 06/16/18 08:39: Immature Granulocyte % (Auto) 0.5, White Blood Count 12.0H, Red Blood Count 5.10, Hemoglobin 15.4, Hematocrit 48.6, Mean Corpuscular Volume 95.3, Mean Corpuscular Hemoglobin 30.2, Mean Corpuscular Hemoglobin Concent 31.7L, Red Cell Distribution Width 13.4, Platelet Count 233, Neutrophils (%) (Auto) 70.0H, Lymphocytes (%) (Auto) 17.7L, Monocytes (%) (Auto) 9.1H, Eosinophils (%) (Auto) 2.0, Basophils (%) (Auto) 0.7, Neutrophils # (Auto) 8.4H, Lymphocytes # (Auto) 2.1, Monocytes # (Auto) 1.1H, Eosinophils # (Auto) 0.2, Basophils # (Auto) 0.1, Nucleated Red Blood Cells % (auto) 0.0, Anion Gap 6L, Glomerular Filtration Rate 50.5, Blood Urea Nitrogen 23H, Creatinine 1.44H, Sodium Level 138, Potassium Level 3.4L, Chloride Level 101, Carbon Dioxide Level 31, Calcium Level 9.1, Aspartate Amino Transf (AST/SGOT) 30, Alanine Aminotransferase (ALT/SGPT) 34, Alkaline Phosphatase 90, Total Bilirubin 1.4H, Total Protein 8.4H, Albumin 4.2, Albumin/Globulin Ratio 1.00 CBC/BMP Laboratory Tests 06/16/18 08:39 Red Blood Count 5.10, Mean Corpuscular Volume 95.3, Mean Corpuscular Hemoglobin 30.2, Mean Corpuscular Hemoglobin Concent 31.7 L, Red Cell Distribution Width 13.4, Neutrophils (%) (Auto) 70.0 H, Lymphocytes (%) (Auto) 17.7 L, Monocytes (%) (Auto) 9.1 H, Eosinophils (%) (Auto) 2.0, Basophils (%) (Auto) 0.7, Neutrophils # (Auto) 8.4 H, Lymphocytes # (Auto) 2.1, Monocytes # (Auto) 1.1 H, Eosinophils # (Auto) 0.2, Basophils # (Auto) 0.1, Calcium Level 9.1, Aspartate Amino Transf (AST/SGOT) 30, Alanine Aminotransferase (ALT/SGPT) 34, Alkaline Phosphatase 90, Total Bilirubin 1.4 H, Total Protein 8.4 H, Albumin 4.2 Microbiology Microbiology 06/16/18 Urine Culture - Final, Complete A-FIB/CHADSVASC A-FIB History Current/History of A-Fib/PAF?: Yes Current Oral Anticoagulant The: No Treatment Reason Anticoagulant not given: Recent/upcomin procedure Assessment/Plan Date Seen The patient was seen on 06/17/18. Patient Summary This is a 77 y/o M w/ phimosis causing urinary retention. He is voiding ok at this point. I discussed taking him to the OR for circumcision, possible cystoscopy and urethral dilation. After a discussion of the risks and benefits, informed consent was signed. Plan/VTE VTE Prophylaxis Ordered?: Yes VTE Exclusion Mechanical Proph: N/A:VTE Prophy Ordered Plan - appreciate hospitalist care for this patient - continue hold blood thinner - informed consent signed for circumcision, cystoscopy, urethral dilation - NPO - plan OR today LENCHO MEDRANO MD June 17, 2018 07:48
[2018-06-17] MEDS: ADVAIR HFA 230/21MCG INHALER INH SCH ×2 (07:55→20:07)
[2018-06-17 08:13] LABS: HEMATOCRIT 47.5 % (42.0-52.0); HEMOGLOBIN 14.9 g/dl (13.5-17.5); MEAN CORPUSCULAR HEMOGLOBIN 30.7 pg (27.0-33.0); MEAN CORPUSCULAR HGB CONC 31.4 g/dl (32.0-36.5); MEAN CORPUSCULAR VOLUME 97.7 fl (80.0-96.0); PLATELET COUNT, AUTOMATED 205 10^3/uL (150-450); RED BLOOD COUNT 4.86 10^6/uL (4.30-6.10); WHITE BLOOD COUNT 10.5 10^3/uL (4.0-10.0)
[2018-06-17 08:22] LABS: INR 1.15; PROTHROMBIN TIME 14.9 SECONDS (12.1-14.4)
[2018-06-17 08:23] LABS: PARTIAL THROMBOPLASTIN TIME 32.4 SECONDS (25.4-37.6)
[2018-06-17 08:31] LABS: CALCIUM LEVEL 8.6 MG/DL (8.8-10.2); CREATININE FOR GFR 1.5 MG/DL (0.70-1.30); GLOMERULAR FILTRATION RATE 48.2 (>42); MAGNESIUM LEVEL 2.3 MG/DL (1.8-2.4); POTASSIUM SERUM 4.1 MEQ/L (3.5-5.1)
[2018-06-17] MEDS: METOPROLOL TART 25 MG TABLET PO SCH ×2 (09:00→20:05)
[2018-06-17] MEDS: GABAPENTIN 300 MG CAP PO SCH ×2 (09:06→20:05)
--- NOTE | 2018-06-17 12:03 | IPNPDOC ---
Subjective Date Seen The patient was seen on 06/17/18. Subjective Chief Complaint/HPI Patient seen and examined at the bedside. Reports that he was able to urinate through the opening made through the foreskin by urology yesterday. He denies any acute overnight events. The patient is tentatively scheduled for the operating room this morning. Objective Physical Examination General Exam: Positive: Alert, Cooperative, No Acute Distress ENT Exam: Positive: Atraumatic, Mucous membr. moist/pink Neck Exam: Negative: JVD Chest Exam: Positive: Clear to auscultation, Normal air movement Heart Exam: Positive: Rate Normal, Normal S1, Normal S2 Abdomen Exam: Positive: Soft; Negative: Tenderness Extremity Exam: Negative: Tenderness, Swelling Skin Exam: Positive: Other skin issue (foreskin over penis noted to be slightly edematous. No tenderness to palpation. There is a small opening to the urethra noted with some superficial blood at the meatus.) Psych Exam: Positive: Oriented x 3 Assessment /Plan Plan/VTE VTE Prophylaxis Ordered?: Yes VTE Exclusion Mechanical Proph: N/A:VTE Prophy Ordered Plan Urinary Obstruction 2/2 Phimosis Urology saw the patient in the ER and was able to make a small opening in the foreskin to allow urine to drain on 06/16 He has been able to urinate overnight w/o any acute complaints The patient is tentatively scheduled to undergo surgical intervention by urology this a.m. We will follow up post-operatively Atrial Fibrillation on Eliquis Last dose of eliquis was taken on 06/15/18 @ 8pm-- we will hold this for surgical intervention. Risks, benefits, and alternative options were discussed at length regarding withholding anticoagulation therapy at this time. The patient and his who is at the bedside verbalized understanding of the same and agreed with the plan moving forward. Rate controlled, Cont Metoprolol CKD Stage III Serum Cr at baseline COPD, stable Continue albuterol, Advair History of BPH s/p TURP Continue finasteride, tamsulosin Hypertension, stable Continue medications as ordered DVT prophylaxis SCDs/TEDs VS, I&O, 24H, Fishbone Vital Signs/I&O Vital Signs Date Time Temp Pulse Resp B/P (MAP) Pulse Ox O2 Delivery O2 Flow Rate FiO2 06/17/18 09:00 77 108/62 06/17/18 04:00 97.7 18 98 06/16/18 16:17 Room Air I&O- Last 24 Hours up to 6 AM 06/17/18 06:00 Intake Total 230 ml Output Total 1050 ml Balance -820 ml Laboratory Data 24H LABS Laboratory Tests 2 06/17/18 07:47: Nucleated Red Blood Cells % (auto) 0.0, Prothrombin Time 14.9H, Prothromb Time International Ratio 1.15, Activated Partial Thromboplast Time 32.4, Anion Gap 3L, Glomerular Filtration Rate 48.2, Blood Urea Nitrogen 22H, Creatinine 1.50H, Sodium Level 139, Potassium Level 4.1#, Chloride Level 104, Carbon Dioxide Level 32, Calcium Level 8.6L, Magnesium Level 2.3 CBC/BMP Laboratory Tests 06/17/18 07:47 Red Blood Count 4.86, Mean Corpuscular Volume 97.7 H, Mean Corpuscular Hemoglobin 30.7, Mean Corpuscular Hemoglobin Concent 31.4 L, Red Cell Distribution Width 13.6, Calcium Level 8.6 L Microbiology Microbiology 06/16/18 Urine Culture - Final, Complete HARVEY ROME MD June 17, 2018 12:03
[2018-06-17] MEDS ORDERED: BACITRACIN OINT 30GM As Ordered ONE (12:11)
[2018-06-17] MEDS ORDERED: cefTRIAXone SOD 1 GM VIAL (J0696) As Ordered ONE (12:44)
[2018-06-17] MEDS: cefTRIAXone SOD 1 GM in D5W MINI-BAG PLUS 50 ML IV SCH (13:00)
[2018-06-17] MEDS ORDERED: MIDAZOLAM INJ 2 MG/2 ML VIAL (J2250) As Ordered ONE (13:04)
[2018-06-17] MEDS ORDERED: PROPOFOL 200 MG/20 ML VIAL As Ordered ONE (13:05)
[2018-06-17] MEDS ORDERED: LIDOCAINE 2% INJ 100 MG/5 ML SDV (FOR ANES.) As Ordered ONE (13:05)
[2018-06-17] MEDS ORDERED: ONDANSETRON 4MG/2ML VIAL (J2405) As Ordered ONE (13:05)
[2018-06-17] MEDS ORDERED: fentaNYL 100 MCG/2 ML INJECTION (J3010) As Ordered ONE (13:05)
[2018-06-17] MEDS ORDERED: dexameTHASONE 4 MG/ML 1ML VIAL (J1100) As Ordered ONE (13:05)
[2018-06-17] MEDS ORDERED: ONDANSETRON 4MG/2ML VIAL (J2405) IV PRN (14:30)
[2018-06-17] MEDS ORDERED: PERCOCET 5MG/325MG TAB PO PRN (14:30)
[2018-06-17] MEDS ORDERED: LR 80 ML IV SCH (14:30)
[2018-06-17] MEDS ORDERED: PERCOCET 5MG/325MG TAB As Ordered ONE (14:35)
[2018-06-17] MEDS ORDERED: fentaNYL 100 MCG/2 ML INJECTION (J3010) IV PRN (15:00)
--- NOTE | 2018-06-17 16:08 | ROOPDOC ---
[facility] Report Of Operation Report of Operation DATE OF PROCEDURE: 06/17/18 PREPROCEDURE DIAGNOSIS: Phimosis, Meatal Stenosis. POSTPROCEDURE DIAGNOSIS: Phimosis, Meatal Stenosis. PROCEDURE: Circumcision, Urethral Meatal Dilation. SURGEON: Lencho Medrano MD GEAR CHANGER: None. ANESTHESIA: General. OPERATIVE INDICATIONS: This is a 77 year-old male who has a tight phimotic ring, which has caused urinary retention. He is here today for a circumcision. DESCRIPTION OF PROCEDURE: The patient was brought to the operating room and general anesthesia was induced. Prophylactic antibiotics were infused. He was then placed in the supine position and prepped and draped in the usual sterile fashion. In order to retract the foreskin down from over the glans I had to first perform a dorsal slit. At this point, circumcising incisions were made at the level of the coronal sulcus with the foreskin retracted over the glans, and then also with the foreskin retracted down off the glans. Next, all the skin in between these two incisions was then removed using electrocautery. Any areas of bleeding were controlled with electrocautery. Any larger vessels were controlled with a #3-0 Vicryl tie. At this point, all the remaining skin of the penile shaft was then reapproximated to the glans using interrupted #2-0 chromic sutures. The patient was also noted to have meatal stenosis. This was treated by dilating the urethral meatus to 22Fr using curved metal sounds. Once this was done, dressings were applied. The dressings included a Elizabeth wrapped around the circumcision line followed by Coban. Once the dressings were applied, this marked the conclusion of the procedure. The patient was then awakened from anesthesia and transported to the recovery room in stable condition. Estimated blood loss was 5 mL. Complications: None. Specimens: Foreskin. PLAN: The patient will remove his dressings in approximately 2 days. He will followup in the clinic in a few weeks for a postoperative visit. LENCHO MEDRANO MD June 17, 2018 16:08
[2018-06-17] MEDS: TAMSULOSIN 0.4 MG CAP PO SCH (20:05)
[2018-06-17] MEDS: FINASTERIDE 5 MG TAB PO SCH (20:05)
--- NOTE | 2018-06-18 12:45 | DS.PDOC ---
Discharge Summary General Date of Admission Jun 16, 2018 at 15:26 Date of Discharge 06/17/18 Specialist/Consultants Involve Dr. Kearney of Urology Discharge Summary PROCEDURES PERFORMED DURING STAY: s/p Circumcision and urethral meatal dilation on 06/17/[address] Kearney of urology ADMITTING/DISCHARGE DIAGNOSES: Urinary obstruction secondary to phimosis s/p circumcision and urethral meatal dilation by Urology Atrial fibrillation on Eliquis History of chronic kidney disease stage III History of COPD History of BPH status post TURP COMPLICATIONS/CHIEF COMPLAINT: Phimosis. HISTORY OF PRESENT ILLNESS: . 77-year-old male with past medical history of hypertension, osteoporosis, COPD, atrial fibrillation on eliquis, and BPH status post TURP presented to the ER with a chief complaint of difficulty with urination. The patient states that he has had difficulty with urination over the last several months due to increasing obstruction from foreskin overlying the penis. He states that over the last several weeks he was able to be after a few seconds of initiation of urine. The foreskin became irritated and swollen last week, and the patient states that he was prescribed antibiotic therapy by his PCP. However, yesterday, the patient states that he was not able to urinate and was only dribbling small amounts. He also noted that he was getting fullness in his lower abdominal area. He denied any complaints of fevers, chills, chest pain, palpitations, abdominal pain, or any nausea/vomiting/diarrhea. In the ER, there was apparently 600 mL of urine noted in the bladder. Urology was consulted and was able to make a small opening through the foreskin and the patient was able to urinate. Unfortunately, a Potts catheter could not be passed through. At this time, the patient will be admitted to the hospitalist service, and a consultation has been placed to urology for further surgical intervention in the morning. During hospitalization, urology took the patient to the OR on 06/17/18 and performed a circumcision with urethral meatal dilation. Postoperatively the patient did not have any complications and he was feeling well. At this time, the patient can be discharged home as per urology. They have recommended that the patient remain off of anticoagulation for 1 week. Risks, benefits, and alternative options regarding withholding anticoagulation were once again discussed with the patient and his at the bedside extensively. They have verbalized understanding of the same. I've advised the patient to follow-up with his primary care physician within 7 days, and with urology as instructed. Lastly, the patient has been instructed to return to the ER for any acute emergencies. DISCHARGE MEDICATIONS: Please see below. ALLERGIES: Please see below. PHYSICAL EXAMINATION ON DISCHARGE: VITAL SIGNS: Please see below. General Exam: Positive: Alert, Cooperative, No Acute Distress ENT Exam: Positive: Atraumatic, Mucous membr. moist/pink Neck Exam: Negative: JVD Chest Exam: Positive: Clear to auscultation, Normal air movement Heart Exam: Positive: Rate Normal, Normal S1, Normal S2 Abdomen Exam: Positive: Soft; Negative: Tenderness Extremity Exam: Negative: Tenderness, Swelling Psych Exam: Positive: Oriented x 3 LABORATORY DATA: Please see below. IMAGING: CT ABDOMEN AND PELVIS WITHOUT CONTRAST: CT abdomen and pelvis was performed without oral or IV contrast. Sagittal and coronal reconstruction images are performed. Visualized lung bases demonstrate no evidence of acute infiltrate. The liver, spleen, adrenals, pancreas and kidneys are grossly unremarkable. There is no renal, ureteral, or bladder calculus. There is no hydroureteronephrosis. The patient has had a prior cholecystectomy. There is no evidence of biliary dilatation. There is mild to moderate atherosclerotic calcification of the abdominal aorta without aneurysm. There is no adenopathy, free air, or free fluid. No bowel wall thickening is seen. Scattered diverticula are seen at the colon. There is no evidence of appendicitis. There is a small umbilical hernia containing fat. I see no pelvic mass. There is mild diffuse thickening or the urinary bladder. There is a small left posterolateral bladder diverticulum. A metallic hip prosthesis is noted on the right. There is streak artifact which somewhat limits evaluation of surrounding structures. IMPRESSION: No renal, ureteral or bladder calculus. No hydroureteronephrosis. Mild diffuse bladder wall thickening with a small diverticulum of the left side of the bladder posterolaterally. Scattered diverticula of the colon without evidence of acute diverticulitis. No evidence of appendicitis. Small umbilical hernia contains fat. Chest one-view HISTORY: Preop Comparison: 10/12/2015 The lungs are clear. The heart is normal in size. The pulmonary vasculature is normal in appearance. Impression: No acute disease. PROGNOSIS: Fair ACTIVITY: As tolerated. DIET: 2 g low sodium diet DISCHARGE PLAN: DISPOSITION: 01 Home, Self-Care. DISCHARGE INSTRUCTIONS: I've advised the patient to follow-up with his primary care physician within 7 days, and with urology as instructed. Lastly, the patient has been instructed to return to the ER for any acute emergencies. DISCHARGE CONDITION: Stable. TIME SPENT ON DISCHARGE: Greater than 30 minutes. Vital Signs/I&Os Vital Signs Date Time Temp Pulse Resp B/P (MAP) Pulse Ox O2 Delivery O2 Flow Rate FiO2 06/17/18 20:05 65 136/67 06/17/18 19:10 98.4 18 96 06/16/18 16:17 Room Air I&O- Last 24 Hours up to 6 AM 06/18/18 06:00 Intake Total 1115 ml Output Total 650 ml Balance 465 ml Microbiology Microbiology 06/16/18 Urine Culture - Final, Complete Discharge Medications Scheduled Apixaban (Eliquis) 5 Mg Tab, 5 MG PO BID, (Reported) Cephalexin (Cephalexin) 500 Mg Capsule, 500 MG PO BID, (Reported) FILLED 06/10 X 7 DAYS Finasteride (Finasteride) 5 Mg Tab, 5 MG PO QHS, (Reported) Gabapentin (Gabapentin) 300 Mg Capsule, 300 MG PO BID, (Reported) Metoprolol Tartrate (Metoprolol Tartrate) 50 Mg Tablet, 25 MG PO BID, (Reported) Salmeterol/Fluticasone (Advair 500-50 Diskus) 28 Puff/Inhaler Aerp, 1 PUFF INH BID, (Reported) Spironolactone (Spironolactone) 25 Mg Tablet, 25 MG PO DAILY, (Reported) Tamsulosin Hcl (Tamsulosin HCl) 0.4 Mg Capsule, 0.4 MG PO QHS, (Reported) Scheduled PRN Albuterol Sulfate (Ventolin Hfa) 18 Gm Hfa.aer.ad, 2 PUFF INH Q4H PRN for SHORTNESS OF BREATH, (Reported) Hydrocodone/Acetaminophen (Stanfield 5-325 Tablet) 1 Each Tablet, 1 TAB PO Q6H PRN for PAIN, (Reported) Allergies Coded Allergies: ciprofloxacin (Verified Allergy, Intermediate, red line from IV, 06/16/18) Penicillins (Verified Allergy, Mild, RASH, 06/16/18) Quinolones (Verified Allergy, Mild, RASH/RED STREAK UP ARM FROM CIPRO, 06/16/18) pregabalin (Verified Allergy, Mild, SWELLING, 06/16/18) HARVEY ROME MD June 18, 2018 12:45
== END 2018-06-17 21:41 | disposition home or self-care (01) | DRG 728 ==
LOC: M ED 07:27 → M ED INP 15:26 → M MS4PR 16:40
PROVIDERS: ADMIT Internal Medicine; ATTEND Internal Medicine
PROC: 0T7D7ZZ Dilation of Urethra, Via Natural or Artificial Opening (ICD-10-PCS; 2018-06-17)
PROC: 0VTTXZZ Resection of Prepuce, External Approach (ICD-10-PCS; principal; 2018-06-17 12:30)
DX: N47.1 Phimosis (principal); I12.9 Hypertensive chronic kidney disease with stage 1 through stage 4 chronic kidney disease, or unspecified chronic kidney disease; J44.9 Chronic obstructive pulmonary disease, unspecified; I48.91 Unspecified atrial fibrillation; N18.3 Chronic kidney disease, stage 3 (moderate); Z79.01 Long term (current) use of anticoagulants; N40.0 Benign prostatic hyperplasia without lower urinary tract symptoms; M81.0 Age-related osteoporosis without current pathological fracture; K42.9 Umbilical hernia without obstruction or gangrene; Z79.899 Other long term (current) drug therapy; Z88.0 Allergy status to penicillin; Z88.8 Allergy status to other drugs, medicaments and biological substances; Z96.641 Presence of right artificial hip joint

== ENCOUNTER → 2018-06-24 | Outpatient (REF) | payer MEDICARE, OTHER ==
[~2018-06-24] MED LIST changes: +CEPH500C PO; +METO50TA7 PO; +NORC1TAB7 PO; +SPIR-10 PO; +TAMS1CAP17 PO; +VENTAER INH
[2018-06-24 19:57] LABS: CALCIUM LEVEL 9.3 MG/DL (8.8-10.2); CREATININE FOR GFR 1.37 MG/DL (0.70-1.30); GLOMERULAR FILTRATION RATE 53.5 (>42); POTASSIUM SERUM 4.5 MEQ/L (3.5-5.1)
== END ==
LOC: M LABDRWAD 19:21
PROVIDERS: ATTEND Internal Medicine Cardiovascular Disease
DX: R06.9 Unspecified abnormalities of breathing (principal); I10 Essential (primary) hypertension; I48.2 Chronic atrial fibrillation

== ENCOUNTER → 2018-07-10 | Outpatient (REF) | payer MEDICARE, OTHER ==
[2018-07-10 13:07] LABS: BASO # 0.1 10^3/uL (0.0-0.2); BASO % 0.5 % (0.0-1.0); EOS # 0.2 10^3/uL (0.0-0.50); HEMOGLOBIN 15.7 g/dl (13.5-17.5); LYMPH # 2.7 10^3/uL (1.5-4.5); LYMPH % 27.2 % (24.0-44.0); MEAN CORPUSCULAR HEMOGLOBIN 30.5 pg (27.0-33.0); MEAN CORPUSCULAR VOLUME 95.3 fl (80.0-96.0); MONO # 0.9 10^3/uL (0.0-0.8); MONO % 8.6 % (0.0-5.0); NEUTROPHILS % 61.2 % (36.0-66.0); PLATELET COUNT, AUTOMATED 194 10^3/uL (150-450); RED BLOOD COUNT 5.14 10^6/uL (4.30-6.10); WHITE BLOOD COUNT 9.9 10^3/uL (4.0-10.0)
[2018-07-10 13:53] LABS: ALBUMIN 3.9 GM/DL (3.2-5.2); BILIRUBIN,TOTAL 1.1 MG/DL (0.2-1.0); CALCIUM LEVEL 9.3 MG/DL (8.8-10.2); CREATININE FOR GFR 1.42 MG/DL (0.70-1.30); GLOMERULAR FILTRATION RATE 51.3 (>42); POTASSIUM SERUM 3.7 MEQ/L (3.5-5.1); TOTAL PROTEIN 7.4 GM/DL (6.4-8.2)
[2018-07-10 14:10] LABS: HEMOGLOBIN A1c 5.5 %
== END ==
LOC: M LABDRWAD 12:31
PROVIDERS: ATTEND Family Medicine
DX: R73.03 Prediabetes (principal); I48.0 Paroxysmal atrial fibrillation

== ENCOUNTER → 2018-07-27 | Outpatient (REF) | payer MEDICARE, OTHER ==
[2018-07-27 12:57] LABS: CALCIUM LEVEL 8.8 MG/DL (8.8-10.2); CREATININE FOR GFR 1.26 MG/DL (0.70-1.30); GLOMERULAR FILTRATION RATE 58.8 (>42); POTASSIUM SERUM 3.7 MEQ/L (3.5-5.1)
== END ==
LOC: M LABDRWAD 12:18
PROVIDERS: ATTEND Internal Medicine Cardiovascular Disease
DX: I10 Essential (primary) hypertension (principal); R06.09 Other forms of dyspnea

== ENCOUNTER → 2018-08-04 | Outpatient (REF) | payer MEDICARE, OTHER ==
[2018-08-04 20:22] LABS: APPEARANCE, URINE HAZY (CLEAR); BACTERIA, URINE AUTO 3+ (NEGATIVE); BILIRUBIN, URINE AUTO NEGATIVE (NEGATIVE); BLOOD, URINE BLOOD 1+ (NEGATIVE); COLOR, URINE YELLOW (YELLOW); GLUCOSE, URINE (UA) AUTO NEGATIVE (NEGATIVE); KETONE, URINE AUTO NEGATIVE (NEGATIVE); LEUKOCYTE ESTERASE, URINE AUTO 3+ (NEGATIVE); NITRITE, URINE AUTO NEGATIVE (NEGATIVE); PROTEIN, URINE AUTO NEGATIVE (NEGATIVE); RBC, URINE AUTO 7 /HPF (0-3); SPECIFIC GRAVITY URINE AUTO 1.009 (1.002-1.035); SQUAMOUS EPITHELIAL CELL UR AU 3 /HPF (0-6); UROBILINOGEN, URINE AUTO 0.2 mg/dL (0.0-2.0); WBC, URINE AUTO TNTC /HPF (0-3)
== END ==
LOC: M SMT 17:06
PROVIDERS: ATTEND Nurse Practitioner Women's Health
DX: R30.0 Dysuria (principal)
CPT/HCPCS: 81001; 87088; 87186; G0463

== ENCOUNTER → 2018-10-20 | Outpatient (CLI) | payer MEDICARE, OTHER ==
[~2018-10-20] MED LIST changes: -LISI20TA PO; +LISI20TA19 PO
--- NOTE | 2018-10-20 16:15 | REP ---
Clinical: Left hand pain. Technique: AP, lateral, bilateral oblique views of the left hand. Findings: Posterior dislocation at the third proximal interphalangeal joint is appreciated without obvious associated fracture. Underlying age-related arthritic degenerative changes are noted throughout the hand and wrist. Findings are most pronounced at the first carpometacarpal joint where chronic subluxation, chondrocalcinosis, subchondral sclerosis and loss of normal contour is appreciated. Impression: 1. Posterior dislocation at the third PIP joint. 2. Diffuse osteopenia and arthritic degenerative changes primarily noted at the first carpometacarpal joint. Electronically Signed by Neptali Stahl MD 10/20/2018 04:05 P
--- NOTE | 2018-10-20 16:28 | REP ---
Clinical: Status post reduction. Technique: AP and lateral views of the left hand. Findings: Satisfactory reduction at the third proximal interphalangeal joint is appreciated. No obvious associated fracture. Advanced arthritic degenerative changes of the hand again noted. Impression: 1. Satisfactory reduction at the third PIP joint. Electronically Signed by Neptali Stahl MD 10/20/2018 04:20 P
== END ==
LOC: M ADAMS 15:49
PROVIDERS: ATTEND Physician Assistant Medical
DX: M79.642 Pain in left hand (principal); S63.283A Dislocation of proximal interphalangeal joint of left middle finger, initial encounter; M85.842 Other specified disorders of bone density and structure, left hand; W19.XXXA Unspecified fall, initial encounter; Y92.9 Unspecified place or not applicable

== ENCOUNTER → 2019-03-02 | Outpatient (REF) | payer MEDICARE, OTHER ==
[2019-03-02 13:44] LABS: BASO % 0.4 % (0.0-1.0); EOS # 0.1 10^3/uL (0.0-0.5); EOS % 1.7 % (0.0-3.0); HEMATOCRIT 49.8 % (42.0-52.0); HEMOGLOBIN 15.1 g/dl (13.5-17.5); LYMPH # 1.9 10^3/uL (1.5-5.0); LYMPH % 25.6 % (24.0-44.0); MEAN CORPUSCULAR HEMOGLOBIN 29.5 pg (27.0-33.0); MEAN CORPUSCULAR HGB CONC 30.3 g/dl (32.0-36.5); MEAN CORPUSCULAR VOLUME 97.3 fl (80.0-96.0); MONO # 0.7 10^3/uL (0.0-0.8); MONO % 8.7 % (0.0-5.0); NEUTROPHILS # 4.7 10^3/uL (1.5-8.5); NEUTROPHILS % 63.2 % (36.0-66.0); PLATELET COUNT, AUTOMATED 164 10^3/uL (150-450); RED BLOOD COUNT 5.12 10^6/uL (4.30-6.10); WHITE BLOOD COUNT 7.5 10^3/uL (4.0-10.0)
[2019-03-02 14:02] LABS: ALBUMIN 3.6 GM/DL (3.2-5.2); ALT/SGPT 19 U/L (12-78); BILIRUBIN,TOTAL 0.7 MG/DL (0.2-1.0); BLOOD UREA NITROGEN 18 MG/DL (7-18); CALCIUM LEVEL 8.3 MG/DL (8.8-10.2); CARBON DIOXIDE LEVEL 31 MEQ/L (21-32); CHLORIDE LEVEL 104 MEQ/L (98-107); CHOLESTEROL LEVEL 129 MG/DL (<200); CHOLESTEROL RISK RATIO 2.866 (<5); CREATININE FOR GFR 1.19 MG/DL (0.70-1.30); GLOMERULAR FILTRATION RATE > 60.0 (>42); GLUCOSE, FASTING 103 MG/DL (70-100); HDL CHOLESTEROL 45 MG/DL (>40); LDL CHOLESTEROL 68 MG/DL (<100); NON-HDL-C 84 MG/DL; POTASSIUM SERUM 4.6 MEQ/L (3.5-5.1); SODIUM LEVEL 140 MEQ/L (136-145); TRIGLYCERIDES LEVEL 82 MG/DL (<150)
[2019-03-02 15:02] LABS: HEMOGLOBIN A1c 5.7 %
== END ==
LOC: M LABDRWAD 12:17
PROVIDERS: ATTEND Family Medicine
DX: N18.3 Chronic kidney disease, stage 3 (moderate) (principal); R73.03 Prediabetes; I12.9 Hypertensive chronic kidney disease with stage 1 through stage 4 chronic kidney disease, or unspecified chronic kidney disease

== ENCOUNTER 2019-11-19 14:50 | Emergency (ER) | payer MEDICARE, OTHER ==
[~2019-11-19] VITALS: Ht 170.2 cm; Wt 86.4 kg
[~2019-11-19 14:50] MED LIST changes: -AMLO10TA5 PO; +AMLO1TAB24 PO; +AMLO1TAB25 PO; -AMLO5TAB6 PO; -LISI20TA19 PO; +LISI20TA35 PO
[2019-11-19] MEDS ORDERED: FURO40TA2 PO (15:23)
[2019-11-19] MEDS ORDERED: PREG150C PO (15:23)
--- NOTE | 2019-11-19 16:07 | REPVR ---
PROCEDURE INFORMATION: Exam: XR Right Hip with Pelvis when Performed Exam date and time: 11/19/2019 3:53 PM Age: 79 years old Clinical indication: Injury or trauma; Fall; Sprain or strain; Right; Hip TECHNIQUE: Imaging protocol: XR Right hip with pelvis when performed. Views: 2 or 3 views. COMPARISON: None FINDINGS: Bones/joints: Right hip hemiarthroplasty, without acute bony injury or malalignment. Degenerative change. Left femoral head sclerosis, suggesting avascular necrosis. Soft tissues: Punctate calcifications. Gastrointestinal tract: Prominent stool . Vasculature: Vascular calcification. IMPRESSION: Right hip hemiarthroplasty, without acute bony injury or malalignment. Electronically signed by: Stefan Pedro On 11/19/2019 16:07:39 PM
--- NOTE | 2019-11-19 16:44 | REPVR ---
PROCEDURE INFORMATION: Exam: XR Right Femur Exam date and time: 11/19/2019 4:16 PM Age: 79 years old Clinical indication: Pain; Thigh; Right; Additional info: Fall, bony tenderness, ext rotation of leg TECHNIQUE: Imaging protocol: XR Right femur. Views: 2 views. COMPARISON: Right hip radiographs 11/19/2019 FINDINGS: Bones/joints: Incomplete visualization of the proximal right femur and arthroplasty, which was visualized on separate right hip radiographs. No acute bony injury or malalignment in the visualized right femur. Degenerative change . Soft tissues: Unremarkable. Vasculature: Vascular calcification. IMPRESSION: No acute bony injury or malalignment in the visualized right femur. Electronically signed by: Stefan Pedro On 11/19/2019 16:44:05 PM
--- NOTE | 2019-11-19 19:42 | REPVR ---
PROCEDURE INFORMATION: Exam: CT Lumbar Spine Without Contrast Exam date and time: 11/19/2019 6:53 PM Age: 79 years old Clinical indication: Injury or trauma; Fall; Blunt trauma (contusions or hematomas); Additional info: Fall, weakness right leg TECHNIQUE: Imaging protocol: Computed tomography images of the lumbar spine without contrast. Radiation optimization: All CT scans at this facility use at least one of these dose optimization techniques: automated exposure control; mA and/or kV adjustment per patient size (includes targeted exams where dose is matched to clinical indication); or iterative reconstruction. COMPARISON: CR Spine. Lumbosacral, complete 08/15/2013 7:51 AM FINDINGS: Vertebrae: Mild retrolisthesis of L2 on L3 and L3 on L4. L1-L2: No significant disc protrusion. No severe spinal canal stenosis. No significant neural foraminal narrowing. L2-L3: There is a moderate central spinal stenosis at L2-L3 secondary to diffuse annular bulging, thickened ligamentum flavum without facet joint arthropathy. L3-L4: There is a moderate central spinal stenosis at L3-L4 secondary to diffuse annular bulging, thickened ligamentum flavum without facet joint arthropathy. L4-L5: There is a moderate to severe central spinal stenosis at L4-L5 secondary to diffuse annular bulging, thickened ligamentum flavum with mild facet joint arthropathy. L5-S1: No significant disc protrusion. No severe spinal canal stenosis. No significant neural foraminal narrowing. Other bones/joints: Osteoporosis. Status post total hip replacement on the right. Bladder: Thickened wall of the urinary bladder. Vasculature: The aortoiliac vessels demonstrate mild atherosclerotic calcification. Soft tissues: Unremarkable. IMPRESSION: 1. Degenerative spondylosis. 2. Moderate central spinal stenosis at L2-L3, moderate central spinal stenosis at L3-L4, and moderate to severe central spinal stenosis at L4-L5. Electronically signed by: Jenaro Elliott On 11/19/2019 19:41:47 PM
[2019-11-19] MEDS ORDERED: ACETAMINOPH W/CODEINE #3 TAB UD PO ONE (19:45)
--- NOTE | 2019-11-19 20:59 | REPVR ---
PROCEDURE INFORMATION: Exam: CT Right Lower Extremity Without Contrast, Hip Exam date and time: 11/19/2019 8:40 PM Age: 79 years old Clinical indication: Pain and injury or trauma; Fall; Blunt trauma; Hip; Right; Prior surgery; Surgery date: 6+ months; Surgery type: Replacement; Additional info: To include prox femur, concern for fracture not seen xray TECHNIQUE: Imaging protocol: CT of the Right lower extremity without contrast was performed. Exam focused on the hip. Radiation optimization: All CT scans at this facility use at least one of these dose optimization techniques: automated exposure control; mA and/or kV adjustment per patient size (includes targeted exams where dose is matched to clinical indication); or iterative reconstruction. COMPARISON: CR Hip,AP,LAT to include Pelvis 11/19/2019 3:33 PM FINDINGS: Bones/joints: Status post total hip replacement on the right. Vertical fracture demonstrated in the greater trochanter. Soft tissues: Inflammatory changes in the soft tissues of the proximal right thigh. IMPRESSION: 1. Status post total hip replacement on the right. Vertical fracture demonstrated in the greater trochanter. 2. Inflammatory changes in the soft tissues of the proximal right thigh. Electronically signed by: Jenaro Elliott On 11/19/2019 20:59:20 PM
[2019-11-19] MEDS ORDERED: NS 500 ML IV ONE (22:00)
[2019-11-19 23:18] VITALS: BP 143/84
== END 2019-11-19 23:22 | disposition short-term general hospital (02) ==
LOC: M ED 14:50 → EDBD 14:50 → M ED 23:22
DX: S72.111A Displaced fracture of greater trochanter of right femur, initial encounter for closed fracture (principal); M47.812 Spondylosis without myelopathy or radiculopathy, cervical region; W01.0XXA Fall on same level from slipping, tripping and stumbling without subsequent striking against object, initial encounter; Y92.000 Kitchen of unspecified non-institutional (private) residence as the place of occurrence of the external cause; Y99.9 Unspecified external cause status; M48.061 Spinal stenosis, lumbar region without neurogenic claudication; Z96.641 Presence of right artificial hip joint; I10 Essential (primary) hypertension; J44.9 Chronic obstructive pulmonary disease, unspecified; Z88.0 Allergy status to penicillin; Z88.1 Allergy status to other antibiotic agents; Z79.899 Other long term (current) drug therapy; Z79.51 Long term (current) use of inhaled steroids; Z79.01 Long term (current) use of anticoagulants

== ENCOUNTER → 2020-01-04 | Outpatient (REF) | payer MEDICARE, OTHER ==
[~2020-01-04] MED LIST changes: +FURO40TA2 PO; +GABA-282 PO; -GABA-843 PO; +PREG150C PO
[2020-01-04 17:56] LABS: ALT/SGPT 13 U/L (12-78); BILIRUBIN,TOTAL 1.1 MG/DL (0.2-1.0); BLOOD UREA NITROGEN 12 MG/DL (7-18); CALCIUM LEVEL 8.5 MG/DL (8.8-10.2); CARBON DIOXIDE LEVEL 32 MEQ/L (21-32); CHLORIDE LEVEL 100 MEQ/L (98-107); CREATININE FOR GFR 1.08 MG/DL (0.70-1.30); FREE T4 1.62 NG/DL (0.76-1.46); GLOMERULAR FILTRATION RATE > 60.0 (>35); GLUCOSE, FASTING 93 MG/DL (70-100); POTASSIUM SERUM 4.5 MEQ/L (3.5-5.1); SODIUM LEVEL 137 MEQ/L (136-145); TOTAL PROTEIN 6.6 GM/DL (6.4-8.2)
[2020-01-04 18:00] LABS: BASO # 0.1 10^3/uL (0.0-0.2); BASO % 0.6 % (0.0-1.0); EOS # 0.1 10^3/uL (0.0-0.5); EOS % 0.8 % (0.0-3.0); HEMATOCRIT 47.6 % (42.0-52.0); HEMOGLOBIN 14.3 g/dl (13.5-17.5); LYMPH # 1.3 10^3/uL (1.5-5.0); LYMPH % 15.2 % (24.0-44.0); MEAN CORPUSCULAR HEMOGLOBIN 29.9 pg (27.0-33.0); MEAN CORPUSCULAR VOLUME 99.6 fl (80.0-96.0); MONO # 0.7 10^3/uL (0.0-0.8); MONO % 8.2 % (0.0-5.0); NEUTROPHILS # 6.3 10^3/uL (1.5-8.5); NEUTROPHILS % 74.7 % (36.0-66.0); PLATELET COUNT, AUTOMATED 210 10^3/uL (150-450); RED BLOOD COUNT 4.78 10^6/uL (4.30-6.10); WHITE BLOOD COUNT 8.4 10^3/uL (4.0-10.0)
[2020-01-04 18:23] LABS: HEMOGLOBIN A1c 5.2 %
== END ==
LOC: M LABDRWAD 16:33
PROVIDERS: ATTEND Family Medicine
DX: K21.9 Gastro-esophageal reflux disease without esophagitis (principal); R60.0 Localized edema; R73.03 Prediabetes